=== PATIENT | female | born 1960 | race Caucasian/White ===

== ENCOUNTER → 2019-10-27 12:23 | Outpatient (BNVA) | payer OTHER, SELFPAY | PROVIDERS: Family Provider Family Medicine; PCP Family Medicine; Visit Provider Family Medicine | DX: D70.9 Neutropenia, unspecified (principal); Z12.11 Encounter for screening for malignant neoplasm of colon | CPT/HCPCS: 85007; 85027 ==

== ENCOUNTER 2020-01-04 09:11 | Outpatient (CLI) | payer OTHER, SELFPAY ==
--- NOTE | 2020-01-04 09:30 | USCV_ITS ---
Jazlyn Graham Age: 59 Gender: F : 1960 Exam Date: 01/04/2020 10:00 Ordering Phys: Yariel Ruiz MD ([email or web address]) Technologist: Holger Lei [place] [facility] [place]: HISTORY: Varicose veins. PROCEDURES: Bilateral duplex Venous Insufficiency study of the Deep and Superficial systems was carried out according to normal protocol with the patient in supine positon for deep system and dependent position for the superficial system. FINDINGS: All deep veins demonstrated compressibility without evidence of intraluminal thrombus or increased echogenicity. Spectral analysis of Doppler signals demonstrates normal response to compression maneuvers indicating patency without obstruction. Reflux determinations were made with the patient in the dependent position, the weight being on the contralateral leg. Vein measurements and reflux times are listed below were applicable. THERE IS SIGNIFICANT REFLUX IN LT GSAPH BELOW THE KNEE CONCLUSIONS No evidence of DVT in the above-mentioned identifiable veins. Significant venous reflux of greater than 500 ms (3.24 seconds )was noted at the greater saphenous vein segment below the knee on the left side. The venous diameter at this level was 0.28 cm and it was at a depth of 0.78 cm from the surface. The venous dimensions, depth from the surface and reflux time are as mentioned above Dr Lana Kaufman MD [facility] (Electronically Signed) Final Date: 04 Jan 2020 20:27 S
--- NOTE | 2020-01-04 10:15 | USCV_ITS ---
Jazlyn Graham Age: 59 Gender: F : 1960 Exam Date: 01/04/2020 09:25 Ordering Phys: Yariel Ruiz MD ([email or web address]) Technologist: Holger Lei Exam Location: [facility] – [place] Indication: ABNORMAL EKG BP: 130 / 70 HR: 54 Rhythm: Sinus Technical Quality: Adequate MEASUREMENTS (Male / Female) Normal Values 2D ECHO LV Diastolic Diameter PLAX 4.4 cm 4.2 - 5.9 / 3.9 - 5.3 cm LV Systolic Diameter PLAX 2.8 cm IVS Diastolic Thickness 1.0 cm 0.6 - 1.0 / 0.6 - 0.9 cm IVS Systolic Thickness 1.1 cm LVPW Diastolic Thickness 1.2 cm 0.6 - 1.0 / 0.6 - 0.9 cm LVPW Systolic Thickness 1.4 cm LVOT Diameter 2.1 cm LV Ejection Fraction 2D Teich 66.8 % LV Ejection Fraction MOD 2C 53.0 % LV Ejection Fraction 2C AL 52.9 % LA Diameter 2.6 cm LA Width 3.7 cm LA Height 3.3 cm RA Width 3.5 cm RA Height 2.9 cm Aorta at Sinotubular Diameter 3.0 cm M-MODE LV Diastolic Diameter MM 4.7 cm 4.2 - 5.9 / 3.9 - 5.3 cm LV Systolic Diameter MM 2.5 cm LV Ejection Fraction MM Teich 79.3 % IVS Diastolic Thickness MM 1.1 cm 0.6 - 1.0 / 0.6 - 0.9 cm IVS Systolic Thickness MM 1.4 cm LVPW Diastolic Thickness MM 1.1 cm 0.6 - 1.0 / 0.6 - 0.9 cm LVPW Systolic Thickness MM 1.8 cm RV Diastolic Diameter MM 1.8 cm Aortic Annulus Diameter 3.3 cm LA Ao Ratio MM 0.8 MV E Point Septal Separation 0.7 cm DOPPLER AV Peak Velocity 144.0 cm/s LVOT Peak Velocity 127.0 cm/s AV Area Cont Eq vti 2.6 cm squared AV Area Cont Eq pk 3.1 cm squared MV Area PHT 5.0 cm squared Mitral E to A Ratio 1.3 MV E' Velocity 12.0 cm/s Mitral E to MV E' Ratio 6.3 Mitral E to LV E' Lateral Ratio 6.1 Mitral E to LV E' Septal Ratio 6.5 TR Peak Velocity 153.0 cm/s TR Peak Gradient 9.4 mmHg TV Peak E Velocity 105.0 cm/s Right Atrial Pressure 3.0 mmHg Pulmonary Artery Systolic Pressu 12.4 mmHg PV Peak Velocity 95.0 cm/s FINDINGS Left Ventricle Normal left ventricular cavity size. Normal left ventricular systolic function. No regional wall motion abnormalities. Left ventricular ejection fraction is estimated at 66 %. Grade II/IV diastolic dysfunction, moderately elevated filling pressures. Right Ventricle The right ventricle is normal in size and function. Right Atrium The right atrium is normal in size. Left Atrium The left atrium is normal in size. Mitral Valve Mildly thickened mitral valve. No mitral valve stenosis. Trace mitral valve regurgitation. Aortic Valve Structurally normal aortic valve without significant sclerosis or stenosis. There is no aortic regurgitation. Tricuspid Valve Trace tricuspid valve regurgitation. Pulmonic Valve Structurally normal pulmonic valve without significant stenosis. There is no pulmonic regurgitation. Pericardium Normal pericardium without effusion. Aorta Normal ascending aorta dimension. CONCLUSIONS 1-Normal left ventricular cavity size. Normal left ventricular systolic function. No regional wall motion abnormalities. Left ventricular ejection fraction is estimated at 66 %. Grade II/IV diastolic dysfunction, moderately elevated filling pressures. 2-Mildly thickened mitral valve. No mitral valve stenosis. Trace mitral valve regurgitation. 3-Trace tricuspid valve regurgitation. 4-There is no pericardial effusion. 5-Right atrial pressure is around 5 mm of mercury. 6-There are no prior echocardiogram studies to compare. Yariel Ruiz MD (Electronically Signed) Final Date: 06 Jan 2020 19:21 S
== END 2020-01-04 09:12 | disposition home or self-care (01) ==
LOC: RAD 09:13
PROVIDERS: Family Provider Family Medicine; PCP Family Medicine; Visit Provider Internal Medicine Cardiovascular Disease
DX: R94.31 Abnormal electrocardiogram [ECG] [EKG] (principal); I08.1 Rheumatic disorders of both mitral and tricuspid valves; I83.93 Asymptomatic varicose veins of bilateral lower extremities
CPT/HCPCS: 93306; 93970

== ENCOUNTER 2020-01-31 07:27 | Day surgery (SDC) | payer OTHER, SELFPAY ==
[2020-01-30 12:25] VITALS: BMI 19.8
[2020-01-31 07:57] VITALS: BP 113/65; PULSE 49; RESP 18; TEMP 36.2; O2SAT 99
[2020-01-31] MEDS: sodium chloride 0.9% 1,000 ML 30 ML IV (08:12)
--- NOTE | 2020-01-31 08:50 | ANES.PREANE2 ---
Pre-Anesthetic Assessment Pre-Anesthetic Assessment: Height/Weight: Height 1.8 m Weight 64.41 kg Temp Pulse Resp BP Pulse Ox 97.1 F L 49 L 18 113/65 99 01/31/20 07:57 01/31/20 07:57 01/31/20 07:57 01/31/20 07:57 01/31/20 07:57 Preop Diagnosis: screening Proposed Procedure: Operation Date: 01/31/20 08:30 Proposed Procedures p Colonoscopy 79677 Z12.11(Not Applicable) - Dat Contreras MD Was Beta Shailesh taken within 24 hours: N/A Last intake: Intake Last Liquid Date 01/30/20 Last Liquid Time 22:00 Last Solid Date 01/29/20 Last Solid Time 21:30 Social: Social History: No alcohol and No tobacco Exam: Pre-Anes Outpt Exam: alert, oriented x 3, clear to auscultation bilaterally and regular rate & rhythm Airway: Submandibular: WNL Cervical ROM: WNL MP: 1 Dentition: Caps History/ROS: No significant history except as noted Pulmonary: Pulmonary: None reported CV/HEM: CV/HEM: None reported : : None reported Hepatic: Hepatic: None reported GI: GI: None reported Metabolic: Metabolic: None reported Musc/skel: Musc/skel: None reported Neuropsych: Neuropsych: None reported Anesthetic Plan: ASA status: 1 Anesthesia: Anesthesia Evaluation and MAC Risk of > 500 ml blood loss (7ml/kg in children): No Meds/Allergies Current Medications: Current Medications Generic Name Dose Route Start Last Admin Trade Name Freq PRN Reason Stop Dose Admin Sodium Chloride 1,000 mls @ 30 ml s/hr 01/31/20 08:00 01/31/20 08:12 Sodium Chloride 0.9% IV 02/01/20 07:59 30 mls/hr .Q24H TONIO Administration PFSH Anesthesia PFSH: Medical History (Updated 01/31/20 @ 08:36 by Dat Contreras MD) History of ganglion cyst Neutropenia Varicose vein of leg Surgical History (Updated 01/31/20 @ 08:36 by Dat Contreras MD) History of oral surgery History of tonsillectomy Social History Smoking and tobacco status: never smoked Alcohol intake: never Data Anesthesia Cardiac Studies: No Data to Display
[2020-01-31 09:09] VITALS: BP 120/69; PULSE 64; RESP 16; O2SAT 100
--- NOTE | 2020-01-31 09:09 | P.HP_ITS ---
Providers/Chief Complaint Primary Care Provider: Kiley Trinidad MD Chief Complaint: Screening Colonscopy History of Present Illness The patient denies abdominal pain, nausea, vomiting, loss of appetite, change in bowel habits, blood in stools, weight loss, constipation or diarrhea. The patient has no family history of colon cancer and has never had a colonoscopy before. Review of Systems General: Reports: 10 or more systems reviewed and unremarkable except in HPI and below Medications/Allergies Home Medications Medication Instructions Recorded Confirmed Last Taken Type No Known Home Medications 10/27/19 01/30/20 Unknown History Allergies Allergy/AdvReac Type Severity Reaction Status Date / Time Beef Containing Products Allergy anaphylaxis Verified 10/27/19 09:20 Sulfa (Sulfonamide Allergy hives Verified 10/27/19 09:20 Antibiotics) PFSH PFSH: Medical History History of ganglion cyst Neutropenia Varicose vein of leg Surgical History History of oral surgery History of tonsillectomy Status post colonoscopy (01/31/20) Sigmoid diverticulosis Social History Smoking and tobacco status: never smoked Alcohol intake: never Vital Signs Vitals Signs: Last Vital Signs Temp 97.1 F L 01/31/20 07:57 Pulse 49 L 01/31/20 07:57 Resp 18 01/31/20 07:57 BP 113/65 01/31/20 07:57 Pulse Ox 99 01/31/20 07:57 Weight: Weight last 48 hrs Weight 142 lb Physical Exam Narrative: EXAM NARRATIVE: HEENT: Normocephalic Eye: Sclera /conjunctiva normal Respiratory and chest: Bilateral clear breath sounds on auscultation Cardiovascular: Normal S1 and S2 heart sounds Abdomen: Soft to palpation Neurological: Oriented to place person and time Skin: Intact, no lesions appreciated on gross exam A&P Assessment and plan (1) Encounter for screening colonoscopy: The patient is scheduled for colonoscopy under MAC. The procedure risks and benefits, including infection, bleeding and bowel injury, has been explained to the patient, who has consented to the procedure. Information about the prep has been provided to the patient. Status: Resolved Coding Level of Care Code Acute Financial Services Officer for Chg Fwd Diagnoses Encounter for screening colonoscopy Z12.11
[2020-01-31 09:16] VITALS: BP 112/68; PULSE 71; RESP 18; O2SAT 100
== END 2020-01-31 09:23 | disposition home or self-care (01) ==
PROVIDERS: PCP Family Medicine; Visit Provider Surgery
PROC: 0DJD8ZZ Inspection of Lower Intestinal Tract, Via Natural or Artificial Opening Endoscopic (ICD-10-PCS; CPT 45378; principal; 2020-01-31 08:30)
DX: Z12.11 Encounter for screening for malignant neoplasm of colon (principal); K57.30 Diverticulosis of large intestine without perforation or abscess without bleeding
CPT/HCPCS: 12345; 45378; J2704; J7030

== ENCOUNTER 2020-04-26 07:49 | Outpatient (CLI) | payer OTHER, SELFPAY ==
--- NOTE | 2020-04-26 07:54 | MM_ITS ---
WS: [id number] BILATERAL DIGITAL SCREENING MAMMOGRAPHY WITH CAD CLINICAL INFORMATION: SCREENING HISTORY: Screening mammogram. No current complaints. COMPARISON: TECHNIQUE: Bilateral CC and MLO views. FINDINGS: Scattered fibroglandular densities bilaterally. No suspicious focal mass, asymmetry, calcifications, or architectural distortion. No evidence of malignancy. MM/[id number] IMPRESSION: BI-RADS: 1-Negative FOLLOW UP: 1 Year Follow-up Recommend return to annual screening mammography.
== END 2020-04-26 07:50 | disposition home or self-care (01) ==
LOC: RADSHAW 07:51
PROVIDERS: PCP Family Medicine; Visit Provider Family Medicine
DX: Z12.31 Encounter for screening mammogram for malignant neoplasm of breast (principal)
CPT/HCPCS: 77067

== ENCOUNTER → 2021-03-30 12:23 | Outpatient (BNVA) | payer OTHER, SELFPAY | PROVIDERS: PCP Family Medicine; Visit Provider Registered Nurse Neonatal Intensive Care | DX: Z20.822 Contact with and (suspected) exposure to COVID-19 (principal) | CPT/HCPCS: 87635 ==

== ENCOUNTER 2021-04-01 13:08 | Outpatient (CLI) | payer OTHER, SELFPAY ==
[2021-04-01 13:20] VITALS: BP 97/60; PULSE 67; RESP 16; TEMP 36.6; O2SAT 99
[2021-04-01 14:51] VITALS: BP 104/62; PULSE 52; RESP 16; TEMP 36.4; O2SAT 99
[2021-04-01 14:58] VITALS: BP 122/77; PULSE 72; RESP 16; O2SAT 93
== END 2021-04-01 13:09 | disposition home or self-care (01) ==
PROVIDERS: PCP Family Medicine; Visit Provider Nurse Practitioner Family
DX: U07.1 COVID-19 (principal)
CPT/HCPCS: 96365

== ENCOUNTER 2021-05-17 08:49 | Outpatient (CLI) | payer OTHER, SELFPAY ==
--- NOTE | 2021-05-17 08:57 | MM_ITS ---
WS: [id number] BILATERAL SCREENING DIGITAL MAMMOGRAM WITH CAD HISTORY: SCREEN COMPARISON: 04/26/2020 and 04/20/2019 Bilateral CC and MLO views submitted. Computer aided detection analyzed. Breast composition: The breasts are heterogeneously dense, which may obscure small masses. No suspici ous masses, microcalcifications or architectural distortion. MM/[id number] IMPRESSION: BI-RADS: 1-Negative FOLLOW UP: 1 Year Follow-up
== END 2021-05-17 08:50 | disposition home or self-care (01) ==
LOC: RADSHAW 08:53
PROVIDERS: PCP Family Medicine; Visit Provider Family Medicine
DX: Z12.31 Encounter for screening mammogram for malignant neoplasm of breast (principal)
CPT/HCPCS: 77067

== ENCOUNTER → 2021-08-20 10:44 | Outpatient (BNVA) | payer OTHER, SELFPAY | PROVIDERS: PCP Family Medicine; Visit Provider Family Medicine | DX: D70.9 Neutropenia, unspecified (principal); E03.9 Hypothyroidism, unspecified; Z91.014 Allergy to mammalian meats | CPT/HCPCS: 80053; 84439; 84443; 85025; 86003 ==

== ENCOUNTER → 2021-08-30 14:37 | Outpatient (BNVA) | payer OTHER, SELFPAY | PROVIDERS: PCP Family Medicine; Visit Provider Family Medicine | DX: Z20.828 Contact with and (suspected) exposure to other viral communicable diseases (principal) | CPT/HCPCS: 87635 ==

== ENCOUNTER 2022-02-14 09:30 | Outpatient (CLI) | payer OTHER, SELFPAY ==
--- NOTE | 2022-02-14 09:33 | MM_ITS ---
WS: [id number] BILATERAL SCREENING DIGITAL BREAST TOMOSYNTHESIS MAMMOGRAM WITH CAD HISTORY: SCREENING COMPARISON: 05/17/2021 and 04/26/2020 Bilateral CC and MLO views with tomosynthesis and synthetic mammography submitted. Computer aided det ection analyzed. Breast composition: There are scattered areas of fibroglandular density. No suspicious masses, microc alcifications or architectural distortion. MM/[id number] IMPRESSION: BI-RADS: 1-Negative FOLLOW UP: 1 Year Follow-up
== END 2022-02-14 09:31 | disposition home or self-care (01) ==
LOC: RAD 09:31
PROVIDERS: PCP Family Medicine; Visit Provider Family Medicine
DX: Z12.31 Encounter for screening mammogram for malignant neoplasm of breast (principal)
CPT/HCPCS: 77063; 77067

== ENCOUNTER → 2022-07-25 15:00 | Outpatient (BNVA) | payer OTHER, SELFPAY | PROVIDERS: PCP Family Medicine; Visit Provider Obstetrics & Gynecology | DX: Z01.419 Encounter for gynecological examination (general) (routine) without abnormal findings (principal) | CPT/HCPCS: 87624 ==

== ENCOUNTER → 2023-08-04 10:38 | Outpatient (BNVA) | payer OTHER, SELFPAY | PROVIDERS: PCP Family Medicine; Visit Provider Dermatology | DX: Z01.89 Encounter for other specified special examinations (principal) ==

== ENCOUNTER 2024-05-03 08:10 | Outpatient (CLI) | payer SELFPAY ==
[2024-05-03 08:33] LABS: HF Add Manual Diff No
[2024-05-03 08:34] LABS: Basophils % 0.6 %; Eosinophils # 0.2 10^3/uL (0.0-0.8); Eosinophils % 4.7 %; Hematocrit 42.7 % (36-47); Lymphocytes # 1.2 10^3/uL (0.8-4.8); Lymphocytes % 32.6 %; Mean Corpuscular HGB Conc 32.3 g/dL (30-55); Mean Corpuscular Hemoglobin 31.7 pg (27-33); Mean Corpuscular Volume 98.2 fl (85-98); Mean Platelet Volume 10.4 fL (7.4-10.4); Monocytes # 0.4 10^3/uL (0.2-0.9); Monocytes % 11.9 %; Neutrophils # 1.81 10^3/uL (1.8-7.7); Neutrophils % 49.9 %; Nucleated Red Blood Cells % 0 %; Platelet Count 177 10^3/cmm (157-399); Red Blood Count 4.35 10^6/uL (3.85-5.65); Red Cell Distribution Width 12.9 % (12.1-15.1); White Blood Count 3.62 10^3/uL (3.29-11.43)
[2024-05-03 08:49] LABS: Estmated Average Glucose 108; Hemoglobin A1C 5.4 % (4.0-6.0)
[2024-05-03 08:57] LABS: Alanine Aminotransferase 22 U/L (0-33); Albumin Level 4.6 g/dL (3.5-5.2); Alkaline Phosphatase 58 U/L (35-105); Anion Gap 14.3 (5-19); Aspartate Amino Transferase 24 U/L (0-32); Blood Urea Nitrogen 22 mg/dL (8-23); Calcium 9.4 mg/dL (8.5-10.5); Carbon Dioxide 26 mmol/L (22-29); Chloride 102 mmol/L (98-107); Chol HDL Ratio 2.06 mg/dL (0.0-4.40); Cholesterol 223 mg/dL (0-200); Glomerular Filtration Rate 72.9 mL/min (90-130); Glucose 94 mg/dL (65-115); HDL Cholesterol 108 mg/dL (60-100); LDL Cholesterol Calculated 104 mg/dL (50-129); LDL HDL Ratio 0.96 RATIO (0.00-3.22); Osmolality Calculated 289 mOsm/kg (285-295); Potassium 4.3 mmol/L (3.5-5.1); Sodium 138 mmol/L (136-145); Total Bilirubin 0.7 mg/dL (0.15-1.2); Total Protein 7.6 g/dL (6.6-8.7); Triglycerides 54 mg/dL (0-150)
[2024-05-03 09:11] LABS: 25 Hydroxy Vitamin D 36 ng/mL (30-100)
== END 2024-05-03 08:11 | disposition home or self-care (01) ==
PROVIDERS: PCP Family Medicine; Visit Provider Dermatology
DX: Z01.89 Encounter for other specified special examinations (principal)
CPT/HCPCS: 36415

== ENCOUNTER 2025-01-11 13:12 | Outpatient (CLI) | payer SELFPAY ==
--- NOTE | 2025-01-11 13:18 | XR_ITS ---
WS: [id number] DEXA (DUAL ENERGY X-RAY ABSORPTIOMETRY) Bone mineral density was performed using a e(ye)BRAIN machine. HISTORY: Z13.820 - Encounter for screening for osteoporosis COMPARISON: None available. Lumbar spine BMD (L1-L4): 0.911 g/cm2 T score: -2.2 Z score: -0.9 Total hip BMD: Left: 0.769 g/cm2. T score: -1.9 Z score: -0.9 Right: 0.731 g/cm2. T score: -2.2 Z score: -1.2 10 year probability of a major osteoporotic fracture is 8.9%. XR/XR DEXA axial skeleton* [id number] IMPRESSION: OSTEOPENIA based upon the WHO classification for females.
--- NOTE | 2025-01-11 13:19 | MM_ITS ---
WS: [id number] BILATERAL 3D TOMOSYNTHESIS DIGITAL SCREENING MAMMOGRAPHY WITH CAD CLINICAL INFORMATION: SCREENING HISTORY: Screening mammogram. No current complaints. COMPARISON: 2021 TECHNIQUE: Bilateral CC and MLO views. FINDINGS: The breasts are composed of heterogeneous fibroglandular density tissue, which can limit the detection of small underlying mass lesions. No suspicious mass, asymmetry, calcifications, or architectural distortion. No evidence of malignancy. MM/MM scr tomosynthesis [id number] IMPRESSION: DENSITY: The breasts are heterogeneously dense, which may obscure small masses. BI-RADS: 1 - Negative FOLLOW UP: 1 Year Follow-up Recommend return to annual screening mammography.
== END 2025-01-11 13:13 | disposition home or self-care (01) ==
PROVIDERS: Visit Provider Family Medicine
DX: Z12.31 Encounter for screening mammogram for malignant neoplasm of breast (principal); Z13.820 Encounter for screening for osteoporosis; R92.333 Mammographic heterogeneous density, bilateral breasts; M85.80 Other specified disorders of bone density and structure, unspecified site
CPT/HCPCS: 77063; 77067; 77080

== ENCOUNTER 2025-05-04 07:59 | Outpatient (CLI) | payer SELFPAY ==
[2025-05-04 09:47] LABS: Thyroid Stimulating Hormone 3.82 uIU/mL (0.27-4.20)
== END 2025-05-04 08:00 | disposition home or self-care (01) ==
PROVIDERS: PCP Family Medicine; Visit Provider Dermatology
DX: Z01.89 Encounter for other specified special examinations (principal)

== ENCOUNTER → 2025-07-17 12:27 | Outpatient (BNVA) | payer SELFPAY | PROVIDERS: PCP Family Medicine; Visit Provider Nurse Practitioner Women's Health | DX: M85.80 Other specified disorders of bone density and structure, unspecified site (principal); Z78.0 Asymptomatic menopausal state | CPT/HCPCS: 84270; 84402; 84403 ==